=== PATIENT | male | born 1955 | race Two or more races ===

== ENCOUNTER → 2019-07-16 | Day surgery (SDC) | payer OTHER ==
[~2019-07-16] VITALS: Ht 177.8 cm; Wt 106.6 kg
[2019-07-16] VITALS (8 sets, daily range): BP systolic 116–135; BP diastolic 73–92
[~2019-07-16] MED LIST: ALLOPURINOL100 M1 ORAL; LR 1000ml ONE; METFORMIN HCL500 M1 ORAL; Midazolam 2mg/2ml Inj ONE; Propofol 200mg/20ml IV ONE; fentaNYL 100 mcg/2 mL IV ONE
--- NOTE | 2019-07-16 09:29 | Anethesia Preoperative Eval ---
Anesthesia Pre-op PMH/ROS General Date of Evaluation: Jul 16, 2019 Time of Evaluation: 09:25 Anesthesiologist: Fani ASA Score: ASA 3 Mallampati Score Class I : Soft palate, uvula, fauces, pillars visible Class II: Soft palate, uvula, fauces visible Class III: Soft palate, base of uvula visible Class IV: Only hard plate visible Mallampati Classification: Class III Surgeon: Eddie Diagnosis: Abdominal pain Surgical Procedure: Colonoscopy Anesthesia History: none Family History: no anesthesia problems Allergies: Coded Allergies: GLUTEN (Verified Allergy, Intermediate, stomach problem, 07/16/19) Beef (Verified Adverse Reaction, Intermediate, "flairs-up gout", 07/16/19) Medications: see eMAR Patient NPO?: Yes Past Medical History Cardiovascular: Reports: HTN; Denies: CAD, MA, valve dz, arrhythmia, other Pulmonary: Reports: VERONICA; Denies: asthma, COPD, other Gastrointestinal/Genitourinary: Reports: GERD; Denies: CRI, ESRD, other Neurologic/Psychiatric: Denies: dementia, CVA, depression/anxiety, TIA, other Endocrine: Reports: DM; Denies: hypothyroidism, steroids, other HEENT: Denies: cataract (L), cataract (R), glaucoma, [place] (L), [place] (R), other Hematology/Immune: Denies: anemia, DVT, bleeding disorder, other Musculoskeletal/Integumentary: Reports: OA; Denies: RA, DJD, DDD, edema, other Other: obesity PMH Narrative: as above PSxH Narrative: see H&P Anesthesia Pre-op Phys. Exam Physician Exam Last Vital Signs Date Time Temp Pulse Resp B/P (MAP) Pulse Ox O2 Delivery O2 Flow Rate FiO2 07/16/19 09:20 97.2 66 18 135/88 97 Room Air Constitutional: NAD Neurologic: CN 2-12 intact Cardiovascular: RRR, no M/R/G Respiratory: CTA Gastrointestinal: other - obesity Airway Exam Mallampati Score: Class III MO: limited Neck: short ROM: limited Teeth: intact Dentures: no upper, no lower Anesthesia Pre-op A/P Risk Assessment & Plan Assessment: ASA 3 Plan: MAC Status Change Before Surgery: No Da Mohr MD Jul 16, 2019 09:29
--- NOTE | 2019-07-16 10:24 | Short Stay Surgery H&P ---
History of Present Illness History of Present Illness Chief Complaint See H&P attached HPI Evaristo Coley is a 64 year old male who was admitted on for History Of Colon Polyps Patient History Allergies: Coded Allergies: GLUTEN (Verified Allergy, Intermediate, stomach problem, 07/16/19) Beef (Verified Adverse Reaction, Intermediate, "flairs-up gout", 07/16/19) Medication History Scheduled Allopurinol* (Allopurinol*), 100 MG ORAL DAILY, (Reported) Metformin Hcl* (Metformin Hcl*), 500 MG ORAL THREE TIMES A DAY, (Reported) Physical Exam Vital Signs Last Vital Signs Date Time Temp Pulse Resp B/P (MAP) Pulse Ox O2 Delivery O2 Flow Rate FiO2 07/16/19 09:26 Room Air 07/16/19 09:20 97.2 66 18 135/88 97 Plan Attestation Are the patient's medical conditions optimized for surgery? Paco Cervantes MD Jul 16, 2019 10:24
--- NOTE | 2019-07-16 10:25 | Pre-Procedure Note/Attestation ---
Pre-Procedure Note/Attestation Complete Prior to Procedure Planned Procedure: not applicable Procedure Narrative: colon Indications for Procedure Pre-Operative Diagnosis: h/o polyp Attestation I attest that I discussed the nature of the procedure; its benefits; risks and complications; and alternatives (and the risks and benefits of such alternatives ), prior to the procedure, with the patient (or the patient's legal hostess party sales representative). I attest that, if there was a reasonable possibility of needing a blood transfusion, the patient (or the patient's legal hostess party sales representative) was given the [facility] standardized written summary, pursuant to the [place] Blood Safety Act ([place] Health and Safety Code # 1645, as amended). I attest that I re-evaluated the patient just prior to the surgery and that there has been no change in the patient's H&P, except as documented below: Paco Cervantes MD Jul 16, 2019 10:25
--- NOTE | 2019-07-16 10:59 | Immediate Post-Op Evaluation ---
Immediate Post-Op Evalulation Immediate Post-Op Evalulation Procedure: Colonoscopy, polypectomy Date of Evaluation: Jul 16, 2019 Time of Evaluation: 10:58 IV Fluids: 700 Blood Products: none Estimated Blood Loss: none Urinary Output: none Blood Pressure Systolic: 128 Blood Pressure Diastolic: 74 Pulse Rate: 64 Respiratory Rate: 20 O2 Sat by Pulse Oximetry: 99 Temperature (Fahrenheit): 97.6 Pain Score (1-10): 1 Nausea: No Vomiting: No Complications none Patient Status: awake, patent, none Hydration Status: adequate Da Mohr MD Jul 16, 2019 10:59
--- NOTE | 2019-07-16 11:00 | Endoscopy Procedure Note ---
Endoscopy Procedure Note General Indication for Procedure: h/o polyp Procedures Performed: colonoscopy Operative Findings/Diagnosis: dim polyp TV, descend x 2 Specimen: yes Pt Tolerated Procedure Well: Yes Estimated Blood Loss: none Anesthesia Anesthesiologist: Alina Anesthesia: MAC Medications Medication Given: see anesthesia record Inserted Devices Implant(s) used?: No GI Core Measures 50 yrs or older w/o bx or poly: No 10yrs. F/U recommended: No If not recommended, why?: Above average risk 18 years or older w/prev. colo: Yes <3yrs. since last colonoscopy: No Med reason:<3 yrs.: System Reason:<3 yrs.: Last colonoscopy >= to 3yrs: Yes Paco Cervantes MD Jul 16, 2019 11:00
--- NOTE | 2019-07-16 11:01 | Brief Operative Note ---
Immediate Post Operative Note Operative Note Chief Complaint: h/o polyp Pre-op Diagnosis: h/o polyp Procedure: colon bx Post-op Diagnosis: dim polyp x 3 Surgeon: amarilys Additional Surgeons: amarilys Anesthesia: MAC Specimen: yes Complications: none Condition: stable Fluids: see report Implant(s) used?: No Paco Cervantes MD Jul 16, 2019 11:01
--- NOTE | 2019-07-16 14:08 | 48 Hour Post Anesthesia Eval ---
Post Anesthesia Evaluation Procedure: Colonoscopy, polypectomy Date of Evaluation: Jul 16, 2019 Time of Evaluation: 14:07 Blood Pressure Systolic: 116 0: 74 Pulse Rate: 78 Respiratory Rate: 20 Temperature (Fahrenheit): 97.6 O2 Sat by Pulse Oximetry: 98 Airway: patent Nausea: No Vomiting: No Pain Intensity: 1 Hydration Status: adequate Cardiopulmonary Status: stable Mental Status/LOC: patient returned to baseline Follow-up Care/Observations: n/a Post-Anesthesia Complications: none Follow-up care needed: ready to discharge Da Mohr MD Jul 16, 2019 14:08
--- NOTE | 2019-07-16 20:15 | Operative Note - Dictated ---
DATE OF OPERATION: 07/16/2019 GASTROENTEROLOGY PROCEDURE REPORT PROCEDURE: Colonoscopy with biopsy. SURGEON: Paco Cervantes M.D. ANESTHESIA: Please see the separate anesthesiologist notes for details. PRE-ENDOSCOPIC DIAGNOSIS: History of colonic polyps. POST-ENDOSCOPIC DIAGNOSES: 1. Normal terminal ileum to about 5 cm. 2. Diminutive polyps in the distal transverse colon in mid descending colon and distal descending colon, status post biopsy removal. 3. Mild diverticulosis of the sigmoid colon. DESCRIPTION OF PROCEDURE: The procedure, its risks, indications, alternatives, and possible complications were explained and the informed consent was obtained. The rectal exam was done and colonoscope was introduced in the rectum and advanced to the terminal ileum. The colonoscope was then gradually withdrawn and mucosa examined carefully. Findings and procedures are listed above. The patient was sent to recovery in good condition. COMPLICATIONS: None. RECOMMENDATIONS: 1. High-fiber diet. 2. Follow up biopsy results. 3. Outpatient followup. Paco Cervantes M.D. DR: KASIA JOB#: [id number] CC: Paco Cervantes M.D.; Fax#: [phone]
== END | disposition home or self-care (01) ==
LOC: GAS 08:35
DX: K63.5 Polyp of colon (principal); K57.90 Diverticulosis of intestine, part unspecified, without perforation or abscess without bleeding; Z86.010 Personal history of colon polyps; Z91.018 Allergy to other foods; Z79.84 Long term (current) use of oral hypoglycemic drugs; I10 Essential (primary) hypertension; G47.33 Obstructive sleep apnea (adult) (pediatric); E11.9 Type 2 diabetes mellitus without complications; K21.9 Gastro-esophageal reflux disease without esophagitis; M19.90 Unspecified osteoarthritis, unspecified site; E66.9 Obesity, unspecified; Z68.33 Body mass index [BMI] 33.0-33.9, adult; D12.4 Benign neoplasm of descending colon; D12.3 Benign neoplasm of transverse colon
CPT/HCPCS: 45380; 82962; J2250; J2704; J3010; J7120; 94003; 94150